=== PATIENT | female | born 2000 | race Caucasian/White ===

== ENCOUNTER 2019-05-24 05:36 | Day surgery (SDC) | payer OTHER ==
[2019-05-24] MEDS ORDERED: FENTAnyl 50 MCG/ML VIAL ×2 (06:58→08:18)
[2019-05-24] MEDS ORDERED: LIDOCAINE 2% (SDV) 5 ML INJ (06:58)
[2019-05-24] MEDS ORDERED: CEFAZOLIN 1 GM INJ (06:58)
[2019-05-24] MEDS ORDERED: PROPOFOL 20 ML (06:58)
[2019-05-24] MEDS ORDERED: MIDAZOLAM 1 MG/ML 2 ML INJ (07:22)
[2019-05-24] MEDS ORDERED: DEXAMETHASONE 4 MG/ML 5 ML INJ (07:30)
[2019-05-24] MEDS ORDERED: ONDANSETRON 4 MG INJ (07:30)
[2019-05-24] MEDS ORDERED: HYDROmorphONE 1 MG/5 ML IV SYRINGE IV ×3 (08:00)
[2019-05-24] MEDS ORDERED: ALBUTEROL 0.083% (NEB) 2.5 MG/3 ML AMP HHN (08:00)
[2019-05-24] MEDS ORDERED: IPRATROPIUM (NEB) 0.5 MG/2.5 ML AMP HHN (08:00)
[2019-05-24] MEDS ORDERED: hydrALAzine 20 MG INJ IV (08:00)
[2019-05-24] MEDS ORDERED: EPHEDrine 25 MG/5 ML SYG IV (08:00)
[2019-05-24] MEDS ORDERED: OXYCODONE/ACETAMINOPHEN (5/325) TAB PO ×2 (08:00)
[2019-05-24] MEDS ORDERED: FENTAnyl 50 MCG/ML VIAL IV ×3 (08:00)
[2019-05-24] MEDS ORDERED: LABETALOL HCL 20MG INJ IV (08:00)
[2019-05-24] MEDS ORDERED: DIPHENHYDRAMINE 50 MG INJ IV (08:00)
[2019-05-24] MEDS ORDERED: ROCURONIUM 50 MG INJ (08:24)
[2019-05-24] MEDS: BUPIVACAINE 0.25%/EPI (SDV) 10 ML INJ (08:32)
[2019-05-24] MEDS ORDERED: IBUPROFEN 600 MG TAB PO (09:00)
[2019-05-24] MEDS ORDERED: ONDANSETRON 4 MG INJ IV (09:00)
[2019-05-24] MEDS: MEPERIDINE 25 MG INJ IV (09:05)
[2019-05-24] MEDS: ONDANSETRON 4 MG INJ IV (09:05)
== END 2019-05-24 11:03 | disposition home or self-care (01) ==
LOC: SDS 05:36
DX: D24.1 Benign neoplasm of right breast (principal)
CPT/HCPCS: 19120; 88307